=== PATIENT | female | born 1955 | race Caucasian/White ===

== ENCOUNTER 2018-04-25 08:37 | Day surgery (SDC) | payer BC ==
[2018-04-12 11:08] VITALS: BMI 33.3
[2018-04-25] MEDS ORDERED: MIDAZOLAM HCL 2 MG/2 ML SINGLE DOSE VIAL ONE (10:39)
[2018-04-25] MEDS ORDERED: LIDOCAINE HCL/PF 2% SDV 5ML VIAL ONE (10:39)
[2018-04-25] MEDS ORDERED: PROPOFOL 20 ML ONE (10:39)
[2018-04-25] MEDS ORDERED: LIDOCAINE HCL 2% (50ML VIAL) INF ONE (11:07)
[2018-04-25] MEDS ORDERED: ACETAMINOPHEN 325 MG TABLET (FP) PO PRN (11:42)
[2018-04-25] MEDS ORDERED: ONDANSETRON 4 MG/2 ML VIAL IVPUSH PRN (11:42)
[2018-04-25] MEDS ORDERED: oxyCODONE HCL 5 MG TABLET PO PRN (11:42)
[2018-04-25] MEDS ORDERED: LACTATED RINGERS SOLUTION 1,000 ML IV SCH (11:45)
[2018-04-25 11:47] VITALS: TEMP 97.6
[2018-04-25 12:34] VITALS: BP 126/65; PULSE 66
--- NOTE | 2018-04-26 15:02 | OP ---
DATE OF OPERATION: 04/25/2018 PREOPERATIVE DIAGNOSIS: Right carpal tunnel syndrome. POSTOPERATIVE DIAGNOSIS: Right carpal tunnel syndrome. OPERATIVE PROCEDURE: Right carpal tunnel release. ANESTHESIA: Local with sedation. COMPLICATIONS: None. ESTIMATED BLOOD LOSS: Minimal. INDICATION FOR PROCEDURE: The patient is a 62-year-old female with the above finding, indicated for operative treatment. Risks, benefits, and alternatives were discussed with the patient at length. Proper informed consent was obtained. PROCEDURE: After proper identification of the patient and the correct operative site, patient was brought to the operating room and placed supine on the operative table. All prominences were well padded. Sedation and local anesthesia were given. Right upper extremity was prepped and draped in usual sterile fashion. Esmarch bandage was used to exsanguinate the right upper extremity. Tourniquet was inflated to 250 mmHg. A longitudinal incision was made in the proximal aspect of the palm. Incision was taken sharply through the skin with blunt and sharp dissection through the subcutaneous tissues. Palmar fascia was divided longitudinally. Transcarpal ligament along with the distal 4 cm of the antebrachial fascia were divided longitudinally under direct visualization with loupe magnification. This provided complete release of the median nerve at the wrist. Wound was irrigated and repaired with 5-0 plain gut suture. Sterile dressings were applied. Patient was brought to recovery room in stable condition. She tolerated the procedure well. DAVID ADAME M.D. [id number]
== END 2018-04-25 12:35 | disposition home or self-care (01) ==
LOC: FASU 08:37
PROVIDERS: ATTEND Orthopaedic Surgery Hand Surgery
PROC: 01N50ZZ Release Median Nerve, Open Approach (ICD-10-PCS; principal; 2018-04-25 11:19)
DX: G56.01 Carpal tunnel syndrome, right upper limb (principal)